=== PATIENT | female | born 1980 | race Caucasian/White ===

== ENCOUNTER 2018-11-22 22:18 | Emergency (ER) | payer OTHER ==
--- NOTE | 2018-11-22 23:04 | EDM.PDOC ---
ED HPI GENERAL MEDICAL PROBLEM - General Chief Complaint: Lower Extremity Injury/Pain Stated Complaint: KNEE PAIN Time Seen by Provider: 11/22/18 22:32 Source of Information: Reports: Patient History Limitations: Reports: No Limitations - History of Present Illness INITIAL COMMENTS - FREE TEXT/NARRATIVE: This is a 38-year-old female. Back in 2005 she injured her right knee and she tells me it was her ACL that she injured. Apparently over the last week or so she has been having pain in her right knee and it feels like is going to give away in fact it's given away twice in the last time she was coming down some steps and he gave away and she fell down the steps. She has good insurance now and she wants to be evaluated. I explained to her that the soft tissues of the knee are seen by MRI and not by x-ray and since she is able to walk and has no obvious knee swelling I do not believe any bone problems are going on and it's all soft tissue. I would refer her to the orthopedist in the meantime put her in a knee immobilizer to help with her stability. Right Knee Pain Score (Numeric/FACES): 8 - Related Data Allergies Allergy/AdvReac Type Severity Reaction Status Date / Time Penicillins Allergy Vomiting Verified 11/22/18 22:28 Home Meds: Home Meds Lee Ann. 11/22/18 [History] Naproxen Sodium 550 mg PO BID #20 tablet 11/22/18 [Rx] Past Medical History HEENT History: Reports: Other (See Below) Other HEENT History: allergies Social & Family History - Tobacco Use Smoking Status *Q: Current Every Day Smoker Years of Tobacco use: 26 Packs/Tins Daily: 0.5 - Recreational Drug Use Recreational Drug Use: Yes Drug Use in Last 12 Months: No Review of Systems - Review of Systems Review Of Systems: See Below Constitutional: Denies: Chills, Fever Eyes: Reports: No Symptoms Ears: Reports: No Symptoms Nose: Reports: No Symptoms Mouth/Throat: Reports: No Symptoms Respiratory: Reports: No Symptoms Cardiovascular: Reports: No Symptoms GI/Abdominal: Reports: No Symptoms Genitourinary: Reports: No Symptoms Musculoskeletal: Reports: Other (Right knee pain) Skin: Reports: No Symptoms Neurological: Reports: No Symptoms Psychiatric: Reports: No Symptoms ED EXAM, GENERAL - Physical Exam Exam: See Below Exam Limited By: No Limitations General Appearance: Alert, WD/WN, No Apparent Distress Eye Exam: Bilateral Eye: Normal Inspection Ears: Normal External Exam Nose: Normal Inspection Throat/Mouth: Normal Inspection, Normal Lips, Normal Voice, No Airway Compromise Head: Normocephalic Neck: Supple Respiratory/Chest: No Respiratory Distress Back Exam: Full Range of Motion Extremities: Normal Inspection, Other (Right knee is mildly tender globally but there is no significant effusion noted. Anterior and posterior drawer sign are negative though she is tender with anterior drawer sign, the medial joint line is tender on palpation but not the lateral joint line, the collateral ligaments both medial and lateral appear to be intact and non-tender with stressing) Neurological: Alert, Oriented Psychiatric: Normal Affect, Normal Mood Skin Exam: Warm, Dry Course - Vital Signs Last Recorded V/S: Last Vital Signs Temp 98.4 F 11/22/18 22:28 Pulse 110 H 11/22/18 22:28 Resp 18 11/22/18 22:28 BP 125/88 11/22/18 22:28 Pulse Ox 100 11/22/18 22:28 Departure - Departure Time of Disposition: 23:01 Disposition: Home, Self-Care 01 Condition: Good Clinical Impression: Sprain of right knee Qualifiers: Encounter type: initial encounter Involved ligament of knee: other ligament Qualified Code(s): S83.8X1A - Sprain of other specified parts of right knee, initial encounter Meniscus, medial, derangement Qualifiers: Laterality: right Qualified Code(s): M23.303 - Other meniscus derangements, unspecified medial meniscus, right knee Sprain, ACL Qualifiers: Encounter type: initial encounter Laterality: right Qualified Code(s): S83.511A - Sprain of anterior cruciate ligament of right knee, initial encounter - Discharge Information *PRESCRIPTION DRUG MONITORING PROGRAM REVIEWED*: Not Applicable *COPY OF PRESCRIPTION DRUG MONITORING REPORT IN PATIENT AUDELIA: Not Applicable Prescriptions: Naproxen Sodium 550 mg PO BID #20 tablet Instructions: Knee Sprain, Adult, [id number] Referrals: Yovana Licona NP [Primary Care Provider] - Keshawn Cardona MD [Physician] - Forms: ED Department Discharge, ED Return to Work/School Form Additional Instructions: Wear the knee immobilizer when you're up and when you're at work, take the naproxen as needed for the soreness and pain in the knee, follow-up with the network management specialist Dr. Cardona" for evaluation of the right knee, return to the ER if needed
== END 2018-11-22 23:30 | disposition home or self-care (01) ==
LOC: JD.ED 22:18
DX: S83.511A Sprain of anterior cruciate ligament of right knee, initial encounter (principal); F17.210 Nicotine dependence, cigarettes, uncomplicated; Z88.1 Allergy status to other antibiotic agents; X58.XXXA Exposure to other specified factors, initial encounter; Z98.890 Other specified postprocedural states
CPT/HCPCS: 99283-25; 99284

== ENCOUNTER 2019-07-03 06:51 | Day surgery (SDC) | payer OTHER ==
[2019-07-03] MEDS ORDERED: Sodium Chloride 0.9% 10 ML Syringe FLUSH PRN (07:27)
[2019-07-03] MEDS ORDERED: Sodium Chloride 0.9% 1,000 ML IV SCH (07:30)
[2019-07-03] MEDS ORDERED: HYDROmorphone 0.5 MG/0.5 ML Syringe IVPUSH ONE ×2 (07:35→08:23)
[2019-07-03] MEDS ORDERED: Ondansetron 4 MG/2 ML SDV IVPUSH ONE (07:35)
--- NOTE | 2019-07-03 07:50 | EDM.PDOC ---
ED HPI GENERAL MEDICAL PROBLEM - General Chief Complaint: Abdominal Pain Stated Complaint: LOW ABD PAIN Time Seen by Provider: 07/03/19 07:22 Source of Information: Reports: Patient, RN Notes Reviewed - History of Present Illness INITIAL COMMENTS - FREE TEXT/NARRATIVE: 38 year old female had onset of severe pelvic pain about 3 hrs ago. She has hx of recent ectopic diagnosed about 3 wks ago, HCG pos but no intrauterine per hx from patient. She was treated with 2 doses of methotrexate. She did have vaginal bleeding and spotting but that stopped a day or 2 ago. Now severe lower mid pelvic pain with cramping and radiation to back. She has had some nausea. No chest or shoulder pain. No difficulty breathing. No vaginal bleeding or spotting at this time. Lower Abdominal Pain Score (Numeric/FACES): 10 - Related Data Allergies Allergy/AdvReac Type Severity Reaction Status Date / Time Penicillins Allergy Vomiting Verified 07/03/19 07:25 Home Meds: Home Meds . 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 Denies: Diarrhea, Vomiting Musculoskeletal: Reports: Back Pain Skin: Reports: No Symptoms Neurological: Reports: No Symptoms ED EXAM, RENAL/ - Physical Exam Exam: See Below General Appearance: Alert, Moderate Distress Eye Exam: Bilateral Eye: PERRL Throat/Mouth: Normal Inspection, Normal Oropharynx Head: Atraumatic Neck: Supple Respiratory/Chest: No Respiratory Distress, Lungs Clear, Normal Breath Sounds Cardiovascular: Regular Rate, Rhythm GI/Abdominal: Soft, Tender (moderate tenderness lower mid pelvis) Course - Vital Signs Last Recorded V/S: Last Vital Signs Temp 97.8 F 07/03/19 07:20 Pulse 76 07/03/19 11:28 Resp 18 07/03/19 07:20 BP 130/86 07/03/19 11:28 Pulse Ox 100 07/03/19 11:28 - Orders/Labs/Meds Orders: Active Orders 24 hr Category Date Time Status Patient Status [ADT] Routine ADT 07/03/19 10:58 Active Antiembolic Devices [RC] PER UNIT ROUTINE Care 07/03/19 11:00 Active Peripheral IV Care [RC] . DIRECTED Care 07/03/19 07:28 Active Procedure Site Prep Instruct [RC] PER UNIT ROUTINE Care 07/03/19 10:58 Active Verify Patient Consent Obtain [RC] PER UNIT ROUTINE Care 07/03/19 11:00 Active Nothing Per Oral Diet [DIET] Diet 07/03/19 Breakfast Active Sodium Chloride 0.9% [Normal Saline] 1,000 ml Med 07/03/19 07:30 Active IV ONETIME Sodium Chloride 0.9% [Saline Flush] Med 07/03/19 07:27 Active 10 ml FLUSH ASDIRECTED PRN Peripheral IV Insertion Adult [OM.PC] Stat Oth 07/03/19 07:27 Ordered Schedule Procedure [COMM] Stat Oth 07/03/19 11:09 Ordered Sequential Compression Device [OM.PC] Per Unit Routine Oth 07/03/19 11:00 Ordered Medication Orders Sodium Chloride (Normal Saline) 1,000 mls @ 999 mls/hr IV ONETIME TWILA Last Admin: 07/03/19 07:44 Dose: 999 mls/hr Sodium Chloride (Saline Flush) 10 ml FLUSH ASDIRECTED PRN PRN Reason: Keep Vein Open Last Admin: 07/03/19 07:47 Dose: 10 ml Labs: Laboratory Tests 07/03/19 07/03/19 Range/Units 07:25 07:25 WBC 14.59 H (3.98-10.04) K/mm3 RBC 4.92 (3.98-5.22) M/mm3 Hgb 14.6 (11.2-15.7) gm/dl Hct 43.4 (34.1-44.9) % MCV 88.2 (79.4-94.8) fl MCH 29.7 (25.6-32.2) pg MCHC 33.6 (32.2-35.5) g/dl RDW Std Deviation 44.8 (36.4-46.3) fL Plt Count 514 H (182-369) K/mm3 MPV 9.6 (9.4-12.3) fl Neut % (Auto) 84.8 H (34.0-71.1) % Lymph % (Auto) 8.6 L (19.3-51.7) % Lucas % (Auto) 5.5 (4.7-12.5) % Eos % (Auto) 0.5 L (0.7-5.8) Baso % (Auto) 0.3 (0.1-1.2) % Neut # (Auto) 12.36 H (1.56-6.13) K/mm3 Lymph # (Auto) 1.26 (1.18-3.74) K/mm3 Lucas # (Auto) 0.80 H (0.24-0.36) K/mm3 Eos # (Auto) 0.08 (0.04-0.36) K/mm3 Baso # (Auto) 0.04 (0.01-0.08) K/mm3 Manual Slide Review Normal smear Sodium 134 L (136-145) mEq/L Potassium 3.3 L (3.5-5.1) mEq/L Chloride 102 (98-107) mEq/L Carbon Dioxide 19 L (21-32) mEq/L Anion Gap 16.3 H (5-15) BUN 13 (7-18) mg/dL Creatinine 0.8 (0.55-1.02) mg/dL Est Cr Clr Drug Dosing 92.72 mL/min Estimated GFR (MDRD) > 60 (>60) mL/min BUN/Creatinine Ratio 16.3 (14-18) Glucose 130 H (74-106) mg/dL Calcium 9.5 (8.5-10.1) mg/dL Total Bilirubin 0.6 (0.2-1.0) mg/dL AST 18 (15-37) U/L ALT 45 (14-59) U/L Alkaline Phosphatase 105 (46-116) U/L Total Protein 8.3 H (6.4-8.2) g/dl Albumin 4.2 (3.4-5.0) g/dl Globulin 4.1 gm/dL Albumin/Globulin Ratio 1.0 (1-2) HCG, Quant 1560.0 mIU/mL Meds: Medications Generic Name Dose Route Start Last Admin Trade Name Frealexa PRN Reason Stop Dose Admin Sodium Chloride 1,000 mls @ 999 mls/hr 07/03/19 07:30 07/03/19 07:44 Normal Saline IV 999 mls/hr ONETIME TWILA Administration Sodium Chloride 10 ml 07/03/19 07:27 07/03/19 07:47 Saline Flush FLUSH 10 ml ASDIRECTED PRN Administration Keep Vein Open Discontinued Medications Generic Name Dose Route Start Last Admin Trade Name Frealexa PRN Reason Stop Dose Admin Bupivacaine HCl Confirm 07/03/19 10:46 Marcaine 0.5% Administered 07/03/19 10:47 Dose 30 ml .ROUTE .STK-MED ONE Dexamethasone Confirm 07/03/19 11:06 Dexamethasone Administered 07/03/19 11:07 Dose 20 mg .ROUTE .STK-MED ONE Fentanyl Confirm 07/03/19 11:06 Sublimaze Administered 07/03/19 11:07 Dose 250 mcg .ROUTE .STK-MED ONE Hydromorphone HCl 0.5 mg 07/03/19 07:35 07/03/19 07:45 Dilaudid IVPUSH 07/03/19 07:36 0.5 mg ONETIME ONE Administration Hydromorphone HCl 0.5 mg 07/03/19 08:23 07/03/19 09:11 Dilaudid IVPUSH 07/03/19 08:24 0.5 mg ONETIME ONE Administration Hydromorphone HCl Confirm 07/03/19 11:56 Dilaudid Administered 07/03/19 11:57 Dose 0.5 mg .ROUTE .STK-MED ONE Hydromorphone HCl Confirm 07/03/19 12:02 Dilaudid Administered 07/03/19 12:03 Dose 0.5 mg .ROUTE .STK-MED ONE Lidocaine HCl Confirm 07/03/19 11:05 Xylocaine-Mpf 1% Administered 07/03/19 11:06 Dose 4 mls @ as directed .ROUTE .STK-MED ONE Lactated Ringer's Confirm 07/03/19 11:05 Ringers, Lactated Administered 07/03/19 11:06 Dose 1,000 mls @ as directed .ROUTE .STK-MED ONE Lactated Ringer's Confirm 07/03/19 11:24 Ringers, Lactated Administered 07/03/19 11:25 Dose 1,000 mls @ as directed .ROUTE .STK-MED ONE Ketamine HCl Confirm 07/03/19 11:37 Ketalar Administered 07/03/19 11:38 Dose 500 mg .ROUTE .STK-MED ONE Ketorolac Tromethamine Confirm 07/03/19 11:06 Toradol Administered 07/03/19 11:07 Dose 30 mg .ROUTE .STK-MED ONE Midazolam HCl Confirm 07/03/19 11:06 Versed 1 Mg/Ml Administered 07/03/19 11:07 Dose 2 mg .ROUTE .STK-MED ONE Ondansetron HCl 4 mg 07/03/19 07:35 07/03/19 07:45 Zofran IVPUSH 07/03/19 07:36 4 mg ONETIME ONE Administration Ondansetron HCl Confirm 07/03/19 11:05 Zofran Administered 07/03/19 11:06 Dose 4 mg .ROUTE .STK-MED ONE Propofol Confirm 07/03/19 11:06 Diprivan 20 Ml Administered 07/03/19 11:07 Dose 400 mg .ROUTE .STK-MED ONE Rocuronium [place] Confirm 07/03/19 11:06 Zemuron Administered 07/03/19 11:07 Dose 100 mg .ROUTE .STK-MED ONE Succinylcholine Chloride Confirm 07/03/19 11:05 Succinylcholine In Ns Pf Administered 07/03/19 11:06 Dose 100 mg .ROUTE .STK-MED ONE Succinylcholine Chloride Confirm 07/03/19 11:10 Succinylcholine In Ns Pf Administered 07/03/19 11:11 Dose 200 mg .ROUTE .STK-MED ONE Departure - Departure Time of Disposition: 22:30 Disposition: DC/Tfer to Critical Access 66 Condition: Serious Clinical Impression: Ectopic Qualifiers: Location of ectopic : unspecified location Intrauterine status: without intrauterine Qualified Code(s): O00.90 - Unspecified ectopic without intrauterine - Discharge Information Sepsis Event Note - Evaluation Sepsis Screening Result: No Definite Risk - Focused Exam Vital Signs: Vital Signs Temp Pulse Resp BP Pulse Ox 07/03/19 11:28 76 130/86 100 07/03/19 07:20 97.8 F 70 18 147/92 H 100 Date Exam was Performed: 07/03/19 Time Exam was Performed: 12:09 ED Communication - Discussed Case With (1) Discussed Case With (1): Admitting Provider (Dr Brian, decision to go over to surgery for expl. lap at about 22:30.) - My Orders Last 24 Hours: My Active Orders 07/03/19 07:27 Sodium Chloride 0.9% [Saline Flush] 10 ml FLUSH ASDIRECTED PRN Peripheral IV Insertion Adult [OM.PC] Stat 07/03/19 07:28 Peripheral IV Care [RC] . DIRECTED 07/03/19 07:30 Sodium Chloride 0.9% [Normal Saline] 1,000 ml IV ONETIME - Assessment/Plan Last 24 Hours: My Active Orders 07/03/19 07:27 Sodium Chloride 0.9% [Saline Flush] 10 ml FLUSH ASDIRECTED PRN Peripheral IV Insertion Adult [OM.PC] Stat 07/03/19 07:28 Peripheral IV Care [RC] . DIRECTED 07/03/19 07:30 Sodium Chloride 0.9% [Normal Saline] 1,000 ml IV ONETIME
--- NOTE | 2019-07-03 10:16 | US ---
First trimester obstetrical ultrasound: Multiple real-time images were obtained transvaginally. Comparison: No previous pelvic imaging. Findings: Uterus is retroverted. No intrauterine gestational sac is seen. Solid abnormality is seen next to the left ovary measuring 3.5 cm. This presumably represents patient's previous ectopic . Small amount of free fluid is seen within the pelvis. Echogenic fluid is noted within the pelvis which is suspicious for small amount of blood. Impression: 1. Small amount of simple fluid with slightly more prominent complicated fluid presumably representing blood. 2. 3.5 cm abnormality next to the left ovary presumably due to patient's previous ectopic . Please correlate if side of previous ectopic is known. 3. No additional abnormality is appreciated. Diagnostic code #3 This report was dictated in [place] Standard Time
--- NOTE | 2019-07-03 10:43 | PCM.PREANE ---
Preanesthetic Assessment - Anesthesia/Transfusion/Family Hx Anesthesia History: Prior Anesthesia Reaction Type of Anesthesia Reaction: Other (see below) (History of difficult intubation) Family History of Anesthesia Reaction: No Transfusion History: No Prior Transfusion(s) Intubation History: Unknown - Review of Systems General: No Symptoms (sore throat, runny nose), Fatigue, Malaise Pulmonary: No Symptoms (Smoker: 1 PPD times 27 yrs.), Cough (smoker's cough: yellowish/green color) Cardiovascular: Dyspnea on Exertion Gastrointestinal: No Symptoms (GERD- takes tums every day.), Abdominal Pain ( Pain 6/10), Decreased Appetite, Nausea, Vomiting Neurological: No Symptoms (History of motion sickness), Headache (History of migraine LIGHT's.) Other: Reports: None, Sinus Problem - Physical Assessment NPO Status Date: 07/02/19 NPO Status Time: 19:00 Vital Signs: Last Vital Signs Temp 36.6 C 07/03/19 07:20 Pulse 70 07/03/19 07:20 Resp 18 07/03/19 07:20 BP 147/92 H 07/03/19 07:20 Pulse Ox 100 07/03/19 07:20 Height: 1.7 m Weight: 90.265 kg ASA Class: 2E Mental Status: Alert & Oriented x3 Airway Class: Mallampati = 3 Dentition: Reports: Normal Dentition, Broken Tooth/Teeth (broken teeth noted in the back), Caries Thyro-Mental Finger Breadths: 3 Mouth Opening Finger Breadths: 3 ROM/Head Extension: Full Lungs: Clear to Auscultation, Normal Respiratory Effort Cardiovascular: Regular Rate, Regular Rhythm, No Murmurs - Lab Values: Laboratory Last Values WBC 14.59 K/mm3 (3.98-10.04) H 07/03/19 07:25 RBC 4.92 M/mm3 (3.98-5.22) 07/03/19 07:25 Hgb 14.6 gm/dl (11.2-15.7) 07/03/19 07:25 Hct 43.4 % (34.1-44.9) 07/03/19 07:25 MCV 88.2 fl (79.4-94.8) 07/03/19 07:25 MCH 29.7 pg (25.6-32.2) 07/03/19 07:25 MCHC 33.6 g/dl (32.2-35.5) 07/03/19 07:25 RDW Std Deviation 44.8 fL (36.4-46.3) 07/03/19 07:25 Plt Count 514 K/mm3 (182-369) H 07/03/19 07:25 MPV 9.6 fl (9.4-12.3) 07/03/19 07:25 Neut % (Auto) 84.8 % (34.0-71.1) H 07/03/19 07:25 Lymph % (Auto) 8.6 % (19.3-51.7) L 07/03/19 07:25 Harrison % (Auto) 5.5 % (4.7-12.5) 07/03/19 07:25 Eos % (Auto) 0.5 (0.7-5.8) L 07/03/19 07:25 Baso % (Auto) 0.3 % (0.1-1.2) 07/03/19 07:25 Neut # (Auto) 12.36 K/mm3 (1.56-6.13) H 07/03/19 07:25 Lymph # (Auto) 1.26 K/mm3 (1.18-3.74) 07/03/19 07:25 Harrison # (Auto) 0.80 K/mm3 (0.24-0.36) H 07/03/19 07:25 Eos # (Auto) 0.08 K/mm3 (0.04-0.36) 07/03/19 07:25 Baso # (Auto) 0.04 K/mm3 (0.01-0.08) 07/03/19 07:25 Manual Slide Review Normal smear 07/03/19 07:25 Sodium 134 mEq/L (136-145) L 07/03/19 07:25 Potassium 3.3 mEq/L (3.5-5.1) L 07/03/19 07:25 Chloride 102 mEq/L (98-107) 07/03/19 07:25 Carbon Dioxide 19 mEq/L (21-32) L 07/03/19 07:25 Anion Gap 16.3 (5-15) H 07/03/19 07:25 BUN 13 mg/dL (7-18) 07/03/19 07:25 Creatinine 0.8 mg/dL (0.55-1.02) 07/03/19 07:25 Est Cr Clr Drug Dosing 92.72 mL/min 07/03/19 07:25 Estimated GFR (MDRD) > 60 mL/min (>60) 07/03/19 07:25 BUN/Creatinine Ratio 16.3 (14-18) 07/03/19 07:25 Glucose 130 mg/dL (74-106) H 07/03/19 07:25 Calcium 9.5 mg/dL (8.5-10.1) 07/03/19 07:25 Total Bilirubin 0.6 mg/dL (0.2-1.0) 07/03/19 07:25 AST 18 U/L (15-37) 07/03/19 07:25 ALT 45 U/L (14-59) 07/03/19 07:25 Alkaline Phosphatase 105 U/L (46-116) 07/03/19 07:25 Total Protein 8.3 g/dl (6.4-8.2) H 07/03/19 07:25 Albumin 4.2 g/dl (3.4-5.0) 07/03/19 07:25 Globulin 4.1 gm/dL 07/03/19 07:25 Albumin/Globulin Ratio 1.0 (1-2) 07/03/19 07:25 HCG, Quant 1560.0 mIU/mL 07/03/19 07:25 Above labs reviewed and noted and within acceptable ranges to proceed with procedure. 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 [No Known Home Meds] 07/03/19 [History] - CURRENT (IN HOUSE) MEDS Current Meds: Current Medications Sodium Chloride (Normal Saline) 1,000 mls @ 999 mls/hr IV ONETIME TWILA Last Admin: 07/03/19 07:44 Dose: 999 mls/hr Sodium Chloride (Saline Flush) 10 ml FLUSH ASDIRECTED PRN PRN Reason: Keep Vein Open Last Admin: 07/03/19 07:47 Dose: 10 ml Discontinued Medications Hydromorphone HCl (Dilaudid) 0.5 mg IVPUSH ONETIME ONE Stop: 07/03/19 07:36 Last Admin: 07/03/19 07:45 Dose: 0.5 mg Hydromorphone HCl (Dilaudid) 0.5 mg IVPUSH ONETIME ONE Stop: 07/03/19 08:24 Last Admin: 07/03/19 09:11 Dose: 0.5 mg Ondansetron HCl (Zofran) 4 mg IVPUSH ONETIME ONE Stop: 07/03/19 07:36 Last Admin: 07/03/19 07:45 Dose: 4 mg
[2019-07-03] MEDS ORDERED: Bupivacaine 0.5% 30 ML SDV ONE (10:46)
[2019-07-03] MEDS ORDERED: Lidocaine 1% 4 ML ONE (11:05)
[2019-07-03] MEDS ORDERED: Ondansetron 4 MG/2 ML SDV ONE (11:05)
[2019-07-03] MEDS ORDERED: Lactated Ringers 1,000 ML ONE ×2 (11:05→11:24)
[2019-07-03] MEDS ORDERED: Succinylcholine/Normal Saline 100 MG/5 ML Syringe ONE ×2 (11:05→11:10)
[2019-07-03] MEDS ORDERED: fentaNYL 250 MCG/5 ML SDV ONE (11:06)
[2019-07-03] MEDS ORDERED: Propofol 200 MG/20 ML SDV ONE (11:06)
[2019-07-03] MEDS ORDERED: Rocuronium 100 MG/10 ML MDV ONE (11:06)
[2019-07-03] MEDS ORDERED: Dexamethasone 4 MG/ML 5 ML MDV ONE (11:06)
[2019-07-03] MEDS ORDERED: Ketorolac 30 MG/ML SDV ONE (11:06)
[2019-07-03] MEDS ORDERED: Midazolam 1 MG/ML 2 ML SDV ONE (11:06)
--- NOTE | 2019-07-03 11:06 | PCM.HP.2 ---
H&P History of Present Illness - General Date of Service: 07/03/19 Admit Problem/Dx: Admission Diagnosis/Problem Admission Diagnosis/Problem Ectopic Source of Information: Patient History Limitations: Reports: No Limitations - History of Present Illness Initial Comments - Free Text/Narative: Patient is a 38 y/o woman who is currently being managed for an ectopic . Has received 2 doses of MTX with adequate dropping of hCG values, but today noted acute onset of abdominal pain. This was around 0400 this AM. Pain has gotten better, but still rates a 5/10. No other issues. Lower Abdominal Pain Score (Numeric/FACES): 10 - Related Data Allergies/Adverse Reactions: Allergies Allergy/AdvReac Type Severity Reaction Status Date / Time Penicillins Allergy Vomiting Verified 07/03/19 07:25 Home Medications: Home Meds . 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 , , Spontaneous : 6 Para: 3 LMP (Approximate): - Past Surgical History GI Surgical History: Reports: Cholecystectomy Female Surgical History: Reports: Tubal Ligation Musculoskeletal Surgical History: Reports: Other (See Below) (foot surgery) Social & Family History - Tobacco Use Smoking Status *Q: Current Every Day Smoker Years of Tobacco use: 27 Packs/Tins Daily: 0.5 - Caffeine Use Caffeine Use: Reports: Coffee - Recreational Drug Use Recreational Drug Use: Yes Drug Use in Last 12 Months: No Recreational Drug Type: Reports: Methamphetamine H&P Review of Systems - Review of Systems: Review Of Systems: See Below General: Reports: No Symptoms Pulmonary: Reports: No Symptoms Cardiovascular: Reports: No Symptoms Gastrointestinal: Reports: Abdominal Pain Genitourinary: Reports: No Symptoms Musculoskeletal: Reports: No Symptoms Psychiatric: Reports: No Symptoms Neurological: Reports: No Symptoms Exam - Exam Exam: See Below - Vital Signs Vital Signs: Last Vital Signs Temp 36.6 C 07/03/19 07:20 Pulse 70 07/03/19 07:20 Resp 18 07/03/19 07:20 BP 147/92 H 07/03/19 07:20 Pulse Ox 100 07/03/19 07:20 Weight: 90.265 kg - Exam General: Alert, Oriented, Cooperative, Mild Distress Lungs: Clear to Auscultation, Normal Respiratory Effort Cardiovascular: Regular Rate, Regular Rhythm GI/Abdominal Exam: Soft, Tender. No: Guarding, Rebound Back Exam: Normal Inspection Extremities: Normal Inspection Skin: Warm, Dry, Intact - Patient Data Lab Results Last 24 hrs: Laboratory Results - last 24 hr 07/03/19 07/03/19 Range/Units 07:25 07:25 WBC 14.59 H (3.98-10.04) K/mm3 RBC 4.92 (3.98-5.22) M/mm3 Hgb 14.6 (11.2-15.7) gm/dl Hct 43.4 (34.1-44.9) % MCV 88.2 (79.4-94.8) fl MCH 29.7 (25.6-32.2) pg MCHC 33.6 (32.2-35.5) g/dl RDW Std Deviation 44.8 (36.4-46.3) fL Plt Count 514 H (182-369) K/mm3 MPV 9.6 (9.4-12.3) fl Neut % (Auto) 84.8 H (34.0-71.1) % Lymph % (Auto) 8.6 L (19.3-51.7) % [place] % (Auto) 5.5 (4.7-12.5) % Eos % (Auto) 0.5 L (0.7-5.8) Baso % (Auto) 0.3 (0.1-1.2) % Neut # (Auto) 12.36 H (1.56-6.13) K/mm3 Lymph # (Auto) 1.26 (1.18-3.74) K/mm3 [place] # (Auto) 0.80 H (0.24-0.36) K/mm3 Eos # (Auto) 0.08 (0.04-0.36) K/mm3 Baso # (Auto) 0.04 (0.01-0.08) K/mm3 Manual Slide Review Normal smear Sodium 134 L (136-145) mEq/L Potassium 3.3 L (3.5-5.1) mEq/L Chloride 102 (98-107) mEq/L Carbon Dioxide 19 L (21-32) mEq/L Anion Gap 16.3 H (5-15) BUN 13 (7-18) mg/dL Creatinine 0.8 (0.55-1.02) mg/dL Est Cr Clr Drug Dosing 92.72 mL/min Estimated GFR (MDRD) > 60 (>60) mL/min BUN/Creatinine Ratio 16.3 (14-18) Glucose 130 H (74-106) mg/dL Calcium 9.5 (8.5-10.1) mg/dL Total Bilirubin 0.6 (0.2-1.0) mg/dL AST 18 (15-37) U/L ALT 45 (14-59) U/L Alkaline Phosphatase 105 (46-116) U/L Total Protein 8.3 H (6.4-8.2) g/dl Albumin 4.2 (3.4-5.0) g/dl Globulin 4.1 gm/dL Albumin/Globulin Ratio 1.0 (1-2) HCG, Quant 1560.0 mIU/mL Result Diagrams: 07/03/19 07:25 07/03/19 07:25 Sepsis Event Note - Evaluation Sepsis Screening Result: No Definite Risk - Focused Exam Vital Signs: Vital Signs Temp Pulse Resp BP Pulse Ox 07/03/19 07:20 36.6 C 70 18 147/92 H 100 Date Exam was Performed: 07/03/19 Time Exam was Performed: 11:01 - Problem List (1) Ectopic SNOMED Code(s): 62138001 ICD Code: O00.90 - UNSPECIFIED ECTOPIC WITHOUT INTRAUTERINE Status: Acute Current Visit: Yes Qualifiers: Location of ectopic : unspecified location Intrauterine status: without intrauterine Qualified Code(s): O00.90 - Unspecified ectopic without intrauterine Problem List Initiated/Reviewed/Updated: Yes Orders Last 24hrs: Active Orders 24 hr Category Date Time Status Patient Status [ADT] Routine ADT 07/03/19 10:58 Ordered Antiembolic Devices [RC] PER UNIT ROUTINE Care 07/03/19 11:00 Ordered Peripheral IV Care [RC] . DIRECTED Care 07/03/19 07:28 Active Procedure Site Prep Instruct [RC] PER UNIT ROUTINE Care 07/03/19 10:58 Ordered Verify Patient Consent Obtain [RC] PER UNIT ROUTINE Care 07/03/19 11:00 Ordered Nothing Per Oral Diet [DIET] Diet 07/03/19 Breakfast Ordered Sodium Chloride 0.9% [Normal Saline] 1,000 ml Med 07/03/19 07:30 Active IV ONETIME Sodium Chloride 0.9% [Saline Flush] Med 07/03/19 07:27 Active 10 ml FLUSH ASDIRECTED PRN Peripheral IV Insertion Adult [OM.PC] Stat Oth 07/03/19 07:27 Ordered Sequential Compression Device [OM.PC] Per Unit Routine Ot 07/03/19 11:00 Ordered Medication Orders Sodium Chloride (Normal Saline) 1,000 mls @ 999 mls/hr IV ONETIME [facility] Last Admin: 07/03/19 07:44 Dose: 999 mls/hr Sodium Chloride (Saline Flush) 10 ml FLUSH ASDIRECTED PRN PRN Reason: Keep Vein Open Last Admin: 07/03/19 07:47 Dose: 10 ml Assessment/Plan Comment:: Patient had successfully dropping hCG's with MTX administration. Now with increasing abdominal pain. Will take for laparoscopic removal of ectopic and removal of residual fallopian tubes. She agrees. Consent reviewed and signed. Anesthesia aware.
--- NOTE | 2019-07-03 11:08 | PCM.OPNOTE ---
- General Post-Op/Procedure Note Date of Surgery/Procedure: 07/03/19 Operative Procedure(s): Evacuation of hemoperitoneum. Removal of ectopic - left salpingectomy. Removal of right fimbriae Findings: About 250 cc of old clot and blood noted in the pelvis. Swollen/edematous residual left fallopian tube adherent to uterus and surrounding bowel. Normal appearance of residual right fimbriae. Normal appearance of bilateral ovaries. Pre Op Diagnosis: Ectopic - failed MTX Post-Op Diagnosis: Same Anesthesia Technique: General ET Tube Primary Surgeon: Taina Holt Secondary Surgeon: Luna Tuttle Anesthesia Provider: Rosario Nguyen Reason Senior Advisory Was Necessary: BMI of patient. Speed/safety of procedure. Management of adhesive disease Pathology: Fallopian tubes and presumed ectopic removed and sent to pathology Fluid Replacement, Intraop: 1,500 Output, Urine Amount: 150 EBL in mLs: 250 Complications: None Condition: Good Free Text/Narrative:: The risks, benefits, indications, potential complications, and alternatives were explained to the patient and informed consent obtained. The patient was taken to the Operating Room where general anesthesia was induced without complication. The patient was placed in dorsal lithotomy with Osmar Stirrups. The patient was then prepped and draped in the usual sterile fashion. A sterile bivalve speculum was placed into the vagina and the anterior lip of the cervix was grasped with a single tooth tenaculum. An attempt was made to place a Hulka uterine manipulator, but was unsuccessful. The single tooth tenaculum was removed. The speculum was removed from the vagina. Sponge stick placed in the vagina. A Chicas catheter was placed in the bladder. Attention was then turned to the patients abdomen where a Veress needle was inserted into the abdomen while tenting the abdominal wall. Intraabdominal placement was confirmed with a drop test using a saline filled syringe and low intraabdominal pressure on low flow. A vertical infraumbilical incision was made in the umbilical fold and the 5 mm blunt trocar was inserted with the 5 mm laparoscope inserted through the trocar for direct visualization of abdominal entry through the clear view lens. Once intraabdominal placement was confirmed, the blunt obturator was removed and the laparoscope was inserted and exam of the patient's abdomen revealed the findings detailed above. Attention was turned to placement of the accessory ports. Both ports were placed approximately 10 cm lateral and 2-3 cm below the level of the first incision. A 10 mm skin incision was made in the right lower quadrant and a 10 mm trocar was inserted into the abdomen under direct visualization with care to avoid the abdominal wall vasculature. A second port was placed through a 5 mm skin incision in the left lower quadrant. A 5 mm trocar was inserted into the abdomen under direct visualization with care to avoid the abdominal wall vasculature. About 250 cc of blood and clot noted in the pelvis. Suction performed. With this dark clot and slightly swollen residual left fallopian tube on patient's left. Adhesions noted to the bowel and uterus. Fallopian tube essentially tethered to the uterus. Adhesions taken down with blunt dissection, hydrodissection, and also sharply. Once fallopian tube free the LigaSure was used to cauterize and transect the mesosalpinx starting at the fimbriae towards the cornua. Once at cornua LigaSure used to cauterize and transect the fallopian tube/ectopic thus freeing it. Specimen placed in anterior cul de sac. Residual right fimbriae and fallopian tube also removed in the fashion with the LigaSure and placed in the anterior cul de sac. Copious irrigation then performed to break up adherent clot in the left ovarian fossa and posterior cul de sac. All sites of dissection felt to be hemostatic. An Endocatch bag was placed through the RLQ port and specimen placed into bag. The bag was then elevated to the anterior abdominal wall and closed. Bag and port removed from the abdomen. The Shalom Keyes inlet closure device was placed into the abdomen and used to re-approximate the fascia of the 10 mm port with 0-Vicryl. Patient taken out of Trendelenburg and suction performed of residual fluid/blood. The left lower quadrant trocar was then removed under direct visualization. The pneumoperitoneum was allowed to escape. The umbilical trocar was removed and lastly the camera was removed from the abdomen under direct visualization to confirm no herniation into the port site. 0.25% Marcaine was injected into the subcutaneous tissue of all skin incisions for local anesthesia. The skin incisions were re-approximated with 4-0 Monocryl in a running subcuticular fashion. Dermabond was also used to seal the incisions. The vaginal instruments and Chicas catheter were all removed and hemostasis was adequate. All sponge, lap, needle, and instrument counts were correct x 2.The patient tolerated the procedure well and there were no complications.
[2019-07-03] MEDS ORDERED: Ketamine 500 mg/10 ML MDV ONE (11:37)
[2019-07-03] MEDS ORDERED: HYDROmorphone 0.5 MG/0.5 ML Syringe ONE ×2 (11:56→12:02)
[2019-07-03] MEDS ORDERED: Neostigmine Methylsulfate 1 MG/ML 5 ML Syringe ONE (12:39)
[2019-07-03] MEDS ORDERED: HYDROmorphone 0.5 MG/0.5 ML Syringe IVPUSH PRN (12:41)
[2019-07-03] MEDS ORDERED: fentaNYL 100 MCG/2 ML SDV IVPUSH PRN (12:41)
[2019-07-03] MEDS ORDERED: Ondansetron 4 MG/2 ML SDV IVPUSH PRN (12:41)
--- NOTE | 2019-07-03 13:23 | PCM.POSTAN ---
POST ANESTHESIA ASSESSMENT - MENTAL STATUS Mental Status: Alert, Oriented - VITAL SIGNS Vital Signs: Last Vital Signs 1314 142/56 107 22 97.4 100% - RESPIRATORY Respiratory Status: Respiratory Rate WNL, Airway Patent, O2 Saturation Stable, Supplemental Oxygen - CARDIOVASCULAR CV Status: Pulse Rate WNL - GASTROINTESTINAL GI Status: No Symptoms - PAIN Pain Score: 0 - POST OP HYDRATION Hydration Status: Adequate & Stable
[2019-07-03] MEDS ORDERED: Acetaminophen/oxyCODONE 325-5 MG Tab PO PRN (13:51)
--- NOTE | 2019-07-03 14:18 | PCM48HPAN ---
Post Anesthesia Note - EVALUATION WITHIN 48HRS OF ANESTHETIC Vital Signs in Normal Range: Yes Patient Participated in Evaluation: Yes Respiratory Function Stable: Yes Airway Patent: Yes Cardiovascular Function Stable: Yes Hydration Status Stable: Yes Pain Control Satisfactory: Yes Nausea and Vomiting Control Satisfactory: Yes Mental Status Recovered: Yes Vital Signs: Last Vital Signs Temp 36.3 C 07/03/19 13:14 Pulse 76 07/03/19 11:28 Resp 14 07/03/19 14:15 BP 133/75 07/03/19 14:15 Pulse Ox 100 07/03/19 14:16
== END 2019-07-03 15:20 | disposition home or self-care (01) ==
LOC: JD.ED 06:51 → JD.SDS 10:33
PROVIDERS: ATTEND Obstetrics & Gynecology
DX: O00.102 Left tubal pregnancy without intrauterine pregnancy (principal); F17.210 Nicotine dependence, cigarettes, uncomplicated; Z88.0 Allergy status to penicillin
CPT/HCPCS: 36415; 51702; 58661; 59151; 76817; 80053; 84702; 85025; 96361; 96374; 96375; 96376; 99285; A9270; J0330; J1100; J1170; J1885; J2001; J2250; J2405; J2704; J2710; J3010; J3490; J7030; J7120; 00840; 99284

== ENCOUNTER 2019-12-11 19:02 | Emergency (ER) | payer OTHER ==
[2019-12-11] MEDS ORDERED: Ondansetron 4 MG/2 ML SDV IVPUSH ONE (19:35)
[2019-12-11] MEDS ORDERED: Ketorolac 30 MG/ML SDV IVPUSH ONE (19:35)
[2019-12-11] MEDS ORDERED: Sodium Chloride 0.9% 10 ML Syringe FLUSH PRN (19:36)
--- NOTE | 2019-12-11 19:41 | EDM.PDOC ---
ED HPI GENERAL MEDICAL PROBLEM - General Chief Complaint: Genitourinary Problem Stated Complaint: BLOOD IN URINE/LEFT SIDE PAIN Time Seen by Provider: 12/11/19 19:18 Source of Information: Reports: Patient, RN Notes Reviewed History Limitations: Reports: No Limitations - History of Present Illness INITIAL COMMENTS - FREE TEXT/NARRATIVE: Patient is a 39-year-old female who presents to the ED for the evaluation of her ongoing urinary symptoms. Patient notes that she was diagnosed with a UTI today, at a clinic. She was started on Macrobid, and did take 1 dose today. She noticed symptoms starting last night, with increased urinary frequency, and blood in the urine this morning. She states that throughout today however she is experiencing pain to her left flank area and has appreciated a temp at home, of 99 F. She states that she does feel nauseous, just does not feel generally well at this time. Patient notes that she does have a history of kidney stones in the past. She did not take any sort of medications for pain management at home. She has not really been able to eat or drink much this afternoon due to not feeling well. The patient denies any sort of , she states she has had both of her fallopian tubes removed. She does have a history of ectopic however. Left Back Pain Score (Numeric/FACES): 8 - Related Data Allergies Allergy/AdvReac Type Severity Reaction Status Date / Time Penicillins AdvReac Severe Vomiting Verified 12/11/19 19:20 Home Meds: Home Meds Acetaminophen/HYDROcodone [Buckhorn 325-5 MG] 1 tab PO Q6H PRN #15 tablet 12/11/19 [Rx] Fluticasone Propionate [Flonase] 2 spray INH DAILY 12/11/19 [History] Levocetirizine Dihydrochloride [Xyzal] 5 mg PO DAILY 12/11/19 [History] Nitrofurantoin Monohyd/M-Cryst [Macrobid 100 mg Capsule] 100 mg PO BID 12/11/19 [History] Ondansetron [Zofran ODT] 4 mg PO Q8H PRN #12 tab.dis 12/11/19 [Rx] Past Medical History HEENT History: Reports: Allergic Rhinitis Other HEENT History: allergies 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 - Past Surgical History GI Surgical History: Reports: Cholecystectomy Female Surgical History: Reports: Oophorectomy Social & Family History - Tobacco Use Smoking Status *Q: Current Every Day Smoker Years of Tobacco use: 27 Packs/Tins Daily: 0.5 - Caffeine Use Caffeine Use: Reports: Coffee - Recreational Drug Use Recreational Drug Use: No ED ROS GENERAL - Review of Systems Review Of Systems: See Below Constitutional: Reports: Fever, Chills, Decreased Appetite Respiratory: Denies: Shortness of Breath, Cough Cardiovascular: Denies: Chest Pain GI/Abdominal: Reports: Abdominal Pain (low abd cramping type pain), Decreased Appetite, Nausea. Denies: Constipation, Diarrhea, Vomiting : Reports: Flank Pain (left), Frequency, Hematuria. Denies: Discharge ED EXAM, RENAL/ - Physical Exam Exam: See Below Exam Limited By: No Limitations General Appearance: Alert, WD/WN, No Apparent Distress Ears: Normal External Exam Nose: Normal Inspection Throat/Mouth: Normal Inspection, Normal Lips, Normal Teeth, Normal Gums, Normal Oropharynx, Normal Voice, No Airway Compromise Head: Atraumatic, Normocephalic Neck: Normal Inspection Respiratory/Chest: No Respiratory Distress, Lungs Clear, Normal Breath Sounds, No Accessory Muscle Use, Chest Non-Tender Cardiovascular: Normal Peripheral Pulses, Regular Rate, Rhythm, No Murmur GI/Abdominal: Normal Bowel Sounds, Soft, Non-Tender, No Distention, No Mass Extremities: Normal Inspection, Normal Capillary Refill Neurological: Alert, Oriented, Normal Cognition, No Motor/Sensory Deficits Psychiatric: Normal Affect, Normal Mood Skin Exam: Warm, Dry, Intact, Normal Color, No Rash Course - Vital Signs Last Recorded V/S: Last Vital Signs Temp 98.0 F 12/11/19 19:17 Pulse 115 H 12/11/19 19:17 Resp 16 12/11/19 19:17 BP 156/94 H 12/11/19 19:17 Pulse Ox 96 12/11/19 19:17 - Orders/Labs/Meds Labs: Laboratory Tests 12/11/19 12/11/19 12/11/19 Range/Units 19:50 19:50 19:50 WBC 13.05 H (3.98-10.04) K/mm3 RBC 5.13 (3.98-5.22) M/mm3 Hgb 15.5 (11.2-15.7) gm/dl Hct 46.0 H (34.1-44.9) % MCV 89.7 (79.4-94.8) fl MCH 30.2 (25.6-32.2) pg MCHC 33.7 (32.2-35.5) g/dl RDW Std Deviation 45.2 (36.4-46.3) fL Plt Count 412 H D (182-369) K/mm3 MPV 9.5 (9.4-12.3) fl Neutrophils % (Manual) 71 H (40-60) % Band Neutrophils % 0 (0-10) % Lymphocytes % (Manual) 25 (20-40) % Atypical Lymphs % 0 % Monocytes % (Manual) 2 (2-10) % Eosinophils % (Manual) 2 (0.7-5.8) % Basophils % (Manual) 0 L (0.1-1.2) Platelet Estimate Adequate RBC Morph Comment Normal Sodium 138 (136-145) mEq/L Potassium 3.3 L (3.5-5.1) mEq/L Chloride 104 (98-107) mEq/L Carbon Dioxide 22 (21-32) mEq/L Anion Gap 15.3 H (5-15) BUN 13 (7-18) mg/dL Creatinine 0.9 (0.55-1.02) mg/dL Est Cr Clr Drug Dosing 81.61 mL/min Estimated GFR (MDRD) > 60 (>60) mL/min BUN/Creatinine Ratio 14.4 (14-18) Glucose 88 (74-106) mg/dL Calcium 9.4 (8.5-10.1) mg/dL Total Bilirubin 0.8 (0.2-1.0) mg/dL AST 17 (15-37) U/L ALT 38 (14-59) U/L Alkaline Phosphatase 106 (46-116) U/L Total Protein 7.9 (6.4-8.2) g/dl Albumin 4.1 (3.4-5.0) g/dl Globulin 3.8 gm/dL Albumin/Globulin Ratio 1.1 (1-2) Urine Color Dee H (Yellow) Urine Appearance Turbid H (Clear) Urine pH 5.5 (5.0-8.0) Ur Specific [place] > or = 1.030 (1.005-1.030) Urine Protein 2+ H (Negative) Urine Glucose (UA) Negative (Negative) Urine Ketones 2+ H (Negative) Urine Occult Blood 3+ H (Negative) Urine Nitrite Negative (Negative) Urine Bilirubin 1+ H (Negative) Urine Urobilinogen 0.2 (0.2-1.0) Ur Leukocyte Esterase Negative (Negative) Urine RBC >100 H (0-5) /hpf Urine WBC 0-5 (0-5) /hpf Ur Squamous Epith Cells 5-10 H (0-5) /hpf Urine Bacteria Few (FEW) /hpf Urine Mucus Moderate H (FEW) /hpf Meds: Medications Discontinued Medications Generic Name Dose Route Start Last Admin Trade Name Freq PRN Reason Stop Dose Admin Hydromorphone HCl 0.5 mg 12/11/19 20:48 12/11/19 20:52 Dilaudid IVPUSH 12/11/19 20:49 0.5 mg ONETIME ONE Administration Sodium Chloride 1,000 mls @ 150 mls/hr 12/11/19 19:45 12/11/19 20:49 Normal Saline IV 999 mls/hr ASDIRECTED TWILA Infusion Ketorolac Tromethamine 30 mg 12/11/19 19:35 12/11/19 19:52 Toradol IVPUSH 12/11/19 19:36 30 mg ONETIME ONE Administration Ondansetron HCl 4 mg 12/11/19 19:35 12/11/19 19:51 Zofran IVPUSH 12/11/19 19:36 4 mg ONETIME ONE Administration Potassium Chloride 40 meq 12/11/19 20:41 12/11/19 20:48 Klor-Con M20 PO 12/11/19 20:42 40 meq ONETIME ONE Administration Sodium Chloride 10 ml 12/11/19 19:36 12/11/19 19:53 Saline Flush FLUSH 10 ml ASDIRECTED PRN Administration Keep Vein Open Tamsulosin HCl 0.4 mg 12/11/19 20:42 12/11/19 20:48 Flomax PO 12/11/19 20:43 0.4 mg ONETIME ONE Administration - Re-Assessments/Exams Free Text/Narrative Re-Assessment/Exam: 12/11/19 19:40 Patient presents to the ED for the evaluation of her ongoing urinary tract infection/symptoms. Have ordered IV to be placed with some IV fluids, 30 mg IV Toradol, abdomen pelvis CT without contrast for evaluation regarding kidney stone versus pyelo, highly suspicious for pyelonephritis in nature, due to symptom course. Have ordered baseline labs and another urinalysis for evaluation. 12/11/19 20:37 Laboratory evaluation demonstrates a mildly elevated white blood cell count at 13.05, 71% neutrophils and 0 bands, this could be due to stress reaction due to the patient's pain. Potassium is mildly low at 3.3, she will get 40 mEq p.o. potassium for this. Other metabolic abnormalities are unremarkable at this time. The patient's urinalysis is highly suggestive of more of a kidney stone in nature, nitrites are negative leukocyte Estrace is negative, RBCs are 100+ per high-power field. The patient's abdomen pelvis CT also did not demonstrate any sort of a pyelonephritis in nature, there was a 2.5 mm calcification within the pelvis either within the distal right ureter or next to the right distal ureter. Please correlate if the patient has right-sided symptoms. Several small nonobstructing calculi within both kidneys were noted as well. No other acute abnormalities were appreciated. Patient's presentation, she was complaining of pain on her left side mainly, however she does have a history of kidney stones and I would be more apt to believe that she is probably has a kidney stone. I will suggest the patient may be stopped taking her nitrofurantoin, and treat herself as if she has a kidney stone otherwise. Departure - Departure Time of Disposition: 20:50 Disposition: Home, Self-Care 01 Condition: Good Clinical Impression: Kidney stone - Discharge Information *PRESCRIPTION DRUG MONITORING PROGRAM REVIEWED*: Yes *COPY OF PRESCRIPTION DRUG MONITORING REPORT IN PATIENT AUDELIA: No Prescriptions: Acetaminophen/HYDROcodone [Buckhorn 325-5 MG] 1 tab PO Q6H PRN #15 tablet PRN Reason: Pain Ondansetron [Zofran ODT] 4 mg PO Q8H PRN #12 tab.dis PRN Reason: Nausea Instructions: Kidney Stones, [id number], Dietary Guidelines to Help Prevent Kidney Stones Referrals: PCP,None [Primary Care Provider] - Forms: ED Department Discharge, ED Return to Work/School Form Additional Instructions: You were evaluated in the ER today for your left flank pain. Your urinalysis did demonstrate a lot of blood in your urine, which is suggestive of a kidney stone at this time. Your urinalysis done at today's ER visit, did not demonstrate any sign of a urinary tract infection like you were previously told, you were started on a course of nitrofurantoin as an antibiotic , you may discontinue this medication at this time. A CT was done at this ER visit, this demonstrated a 2.5mm kidney stone within the right ureter. You have been given a strainer, please use every time you use the bathroom to make sure that the kidney stone has passed. Recommend that you increase your oral fluid intake to try to help the stone pass. You have been given a few tablets of pain medication, please take as prescribed. These medications are highly addictive, please take as few as you need to. These medications also may cause constipation, please take a stool softener like MiraLAX while taking these medications. If your pain is not much better in a week's time, you may need to follow up with your primary care physician, for a possible urology referral. Please return to the ED if your symptoms change or worsen. Sepsis Event Note - Evaluation Sepsis Screening Result: No Definite Risk - Focused Exam Date Exam was Performed: 12/14/19 Time Exam was Performed: 11:06
[2019-12-11] MEDS ORDERED: Sodium Chloride 0.9% 1,000 ML IV SCH (19:45)
--- NOTE | 2019-12-11 20:24 | CT ---
CT abdomen and pelvis Technique: Multiple axial sections were obtained from above the dome of the diaphragm inferiorly through the pubic symphysis. Intravenous and oral contrast not utilized. Comparison: No prior abdominal imaging is available. Findings: 2 small nonobstructing calculi are seen within the left kidney. 1 small nonobstructing stone is noted within the right kidney. These calculi measure less than 5 mm in size. Ureters show no dilatation. Small calcification is seen which is either within or next to the distal right ureter. This finding measures about 2.5 mm in size. Other findings: Visualized lung bases show nothing acute. Liver contains no focal abnormality. Spleen appears normal. Surgical clips are seen from prior cholecystectomy. Adrenal glands show no nodule. Pancreas shows no abnormality. Aorta shows no aneurysm. No retroperitoneal adenopathy or mesenteric abnormalities are seen. Appendix is seen which is normal. No pelvic mass or adenopathy is seen. No free fluid or inflammatory change is seen. Impression: 1. 2.5 mm calcification within the pelvis either within the distal right ureter or next to the right distal ureter. Please correlate if patient has right-sided symptoms. 2. Small nonobstructing calculi within both kidneys. 3. No additional abnormality is appreciated. Diagnostic code #3 This report was dictated in MDT
[2019-12-11] MEDS ORDERED: Potassium Chloride 20 MEQ Tab.ER PO ONE (20:41)
[2019-12-11] MEDS ORDERED: Tamsulosin 0.4 MG Cap.ER PO ONE (20:42)
[2019-12-11] MEDS ORDERED: HYDROmorphone 0.5 MG/0.5 ML Syringe IVPUSH ONE (20:48)
== END 2019-12-11 21:32 | disposition home or self-care (01) ==
LOC: JD.ED 19:02
DX: N20.2 Calculus of kidney with calculus of ureter (principal); Z88.0 Allergy status to penicillin; F17.210 Nicotine dependence, cigarettes, uncomplicated
CPT/HCPCS: 36415; 74176; 80053; 81001; 85007; 85027; 96374; 96375; 99284; A9270; J1170; J1885; J2405; J7030; 99283

== ENCOUNTER 2019-12-22 18:41 | Emergency (ER) | payer OTHER ==
--- NOTE | 2019-12-22 19:06 | EDM.PDOC ---
ED HPI GENERAL MEDICAL PROBLEM - General Chief Complaint: Flank Pain Stated Complaint: FLANK PAIN Time Seen by Provider: 12/22/19 19:06 - History of Present Illness INITIAL COMMENTS - FREE TEXT/NARRATIVE: 39-year-old female presents the emergency room with kidney stone pain on the Left. Patient was diagnosed with a kidney stone about 12 days ago. Her symptoms of kind of waxed and waned she is not convinced she is passed the stone now the last couple of days she is had pretty significant symptoms. Has had some urinary spotting but she is having another cycle. She denies any fevers or chills she has some urinary discomfort with voiding at times. Vomiting. And at times she has some dysuria. Left Flank Pain Score (Numeric/FACES): 7 - Related Data Allergies Allergy/AdvReac Type Severity Reaction Status Date / Time Penicillins AdvReac Severe Vomiting Verified 12/22/19 18:47 Home Meds: Home Meds Acetaminophen/HYDROcodone [[place] 325-5 MG] 1 tab PO Q6H PRN #15 tablet 12/11/19 [Rx] Fluticasone Propionate [Flonase] 2 spray INH DAILY 12/11/19 [History] Ondansetron [Zofran ODT] 4 mg PO Q8H PRN #12 tab.dis 12/11/19 [Rx] Tamsulosin HCl [Flomax] 0.4 mg PO DAILY 12/22/19 [History] Past Medical History HEENT History: Reports: Allergic Rhinitis Other HEENT History: allergies Genitourinary History: Reports: Renal Calculus 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 Social & Family History - Tobacco Use Smoking Status *Q: Current Every Day Smoker Years of Tobacco use: 27 Packs/Tins Daily: 0.5 Second Hand Smoke Exposure: Yes - Caffeine Use Caffeine Use: Reports: Coffee, Soda - Recreational Drug Use Recreational Drug Use: No ED ROS GENERAL - Review of Systems Review Of Systems: See Below Constitutional: Denies: Fever, Chills HEENT: Reports: No Symptoms Respiratory: Reports: No Symptoms Cardiovascular: Reports: No Symptoms, Palpitations GI/Abdominal: Reports: Abdominal Pain, Nausea. Denies: Constipation, Diarrhea, Vomiting : Reports: Flank Pain, Frequency, Hematuria, Irregular Menses, Urgency. Denies: Dysuria Musculoskeletal: Reports: No Symptoms Skin: Reports: No Symptoms Neurological: Reports: No Symptoms Psychiatric: Reports: No Symptoms ED EXAM, RENAL/ - Physical Exam Exam: See Below Exam Limited By: No Limitations General Appearance: Alert, No Apparent Distress Head: Atraumatic, Normocephalic Neck: Normal Inspection, Supple, Non-Tender, Full Range of Motion Respiratory/Chest: No Respiratory Distress, Lungs Clear, Normal Breath Sounds, No Accessory Muscle Use, Chest Non-Tender Cardiovascular: Normal Peripheral Pulses, Regular Rate, Rhythm, No Edema, No Gallop, No JVD, No Murmur, No Rub GI/Abdominal: Normal Bowel Sounds, Soft, Other (Left-sided discomfort no rigidity rebound or guarding noted) Back Exam: Normal Inspection. No: CVA Tenderness (R) Extremities: Normal Inspection Course - Vital Signs Last Recorded V/S: Last Vital Signs Temp 37.2 C 12/22/19 18:45 Pulse 82 12/22/19 18:45 Resp 16 12/22/19 18:45 BP 143/92 H 12/22/19 18:45 Pulse Ox 99 12/22/19 18:45 - Orders/Labs/Meds Orders: Active Orders 24 hr Category Date Time Status Abdomen Pelvis wo Cont [CT] Stat Exams 12/22/19 19:19 Taken Labs: Laboratory Tests 12/22/19 12/22/19 12/22/19 Range/Units 19:40 19:40 19:40 WBC 8.89 (3.98-10.04) K/mm3 RBC 5.10 (3.98-5.22) M/mm3 Hgb 15.4 (11.2-15.7) gm/dl Hct 46.4 H (34.1-44.9) % MCV 91.0 (79.4-94.8) fl MCH 30.2 (25.6-32.2) pg MCHC 33.2 (32.2-35.5) g/dl RDW Std Deviation 44.0 (36.4-46.3) fL Plt Count 380 H (182-369) K/mm3 MPV 9.6 (9.4-12.3) fl Neut % (Auto) 52.8 (34.0-71.1) % Lymph % (Auto) 37.9 (19.3-51.7) % [place] % (Auto) 5.5 (4.7-12.5) % Eos % (Auto) 3.0 (0.7-5.8) Baso % (Auto) 0.6 (0.1-1.2) % Neut # (Auto) 4.69 (1.56-6.13) K/mm3 Lymph # (Auto) 3.37 (1.18-3.74) K/mm3 [place] # (Auto) 0.49 H (0.24-0.36) K/mm3 Eos # (Auto) 0.27 (0.04-0.36) K/mm3 Baso # (Auto) 0.05 (0.01-0.08) K/mm3 Sodium 141 (136-145) mEq/L Potassium 3.5 (3.5-5.1) mEq/L Chloride 104 (98-107) mEq/L Carbon Dioxide 28 (21-32) mEq/L Anion Gap 12.5 (5-15) BUN 10 (7-18) mg/dL Creatinine 1.0 (0.55-1.02) mg/dL Est Cr Clr Drug Dosing 73.45 mL/min Estimated GFR (MDRD) > 60 (>60) mL/min BUN/Creatinine Ratio 10.0 L (14-18) Glucose 90 (74-106) mg/dL Calcium 10.6 H (8.5-10.1) mg/dL Total Bilirubin 0.2 (0.2-1.0) mg/dL AST 18 (15-37) U/L ALT 42 (14-59) U/L Alkaline Phosphatase 96 (46-116) U/L Total Protein 7.0 (6.4-8.2) g/dl Albumin 3.4 (3.4-5.0) g/dl Globulin 3.6 gm/dL Albumin/Globulin Ratio 0.9 L (1-2) HCG, Qual Negative (NEGATIVE) Urine Color (Yellow) Urine Appearance (Clear) Urine pH (5.0-8.0) Ur Specific [place] (1.005-1.030) Urine Protein (Negative) Urine Glucose (UA) (Negative) Urine Ketones (Negative) Urine Occult Blood (Negative) Urine Nitrite (Negative) Urine Bilirubin (Negative) Urine Urobilinogen (0.2-1.0) Ur Leukocyte Esterase (Negative) Urine RBC (0-5) /hpf Urine WBC (0-5) /hpf Ur Squamous Epith Cells (0-5) /hpf Urine Bacteria (FEW) /hpf Urine Mucus (FEW) /hpf 12/22/19 Range/Units 20:09 WBC (3.98-10.04) K/mm3 RBC (3.98-5.22) M/mm3 Hgb (11.2-15.7) gm/dl Hct (34.1-44.9) % MCV (79.4-94.8) fl MCH (25.6-32.2) pg MCHC (32.2-35.5) g/dl RDW Std Deviation (36.4-46.3) fL Plt Count (182-369) K/mm3 MPV (9.4-12.3) fl Neut % (Auto) (34.0-71.1) % Lymph % (Auto) (19.3-51.7) % [place] % (Auto) (4.7-12.5) % Eos % (Auto) (0.7-5.8) Baso % (Auto) (0.1-1.2) % Neut # (Auto) (1.56-6.13) K/mm3 Lymph # (Auto) (1.18-3.74) K/mm3 [place] # (Auto) (0.24-0.36) K/mm3 Eos # (Auto) (0.04-0.36) K/mm3 Baso # (Auto) (0.01-0.08) K/mm3 Sodium (136-145) mEq/L Potassium (3.5-5.1) mEq/L Chloride (98-107) mEq/L Carbon Dioxide (21-32) mEq/L Anion Gap (5-15) BUN (7-18) mg/dL Creatinine (0.55-1.02) mg/dL Est Cr Clr Drug Dosing mL/min Estimated GFR (MDRD) (>60) mL/min BUN/Creatinine Ratio (14-18) Glucose (74-106) mg/dL Calcium (8.5-10.1) mg/dL Total Bilirubin (0.2-1.0) mg/dL AST (15-37) U/L ALT (14-59) U/L Alkaline Phosphatase (46-116) U/L Total Protein (6.4-8.2) g/dl Albumin (3.4-5.0) g/dl Globulin gm/dL Albumin/Globulin Ratio (1-2) HCG, Qual (NEGATIVE) Urine Color Yellow (Yellow) Urine Appearance Slt cloudy H (Clear) Urine pH 6.5 (5.0-8.0) Ur Specific [place] > or = 1.030 (1.005-1.030) Urine Protein Negative (Negative) Urine Glucose (UA) Negative (Negative) Urine Ketones Negative (Negative) Urine Occult Blood 3+ H (Negative) Urine Nitrite Negative (Negative) Urine Bilirubin Negative (Negative) Urine Urobilinogen 0.2 (0.2-1.0) Ur Leukocyte Esterase Negative (Negative) Urine RBC 75-100 H (0-5) /hpf Urine WBC 0-5 (0-5) /hpf Ur Squamous Epith Cells 5-10 H (0-5) /hpf Urine Bacteria Few (FEW) /hpf Urine Mucus Few (FEW) /hpf - Re-Assessments/Exams Free Text/Narrative Re-Assessment/Exam: 12/22/19 21:56 Urinalysis is not suggestive of an infectious process. Serum chemistries are non-concerning. CT was done that shows nonobstructing stones at both UVJ's both stones are roughly 3 mm. My big concern is she still is having some bleeding. And I do not want to miss a bladder process assuming this is coming from kidney stones. I discussed this with the patient she needs to follow-up with her regular provider and follow up with urology to make sure the stones are completely cleared and will not impose a risk to her long-term renal function. I did discuss this with the patient and she understands this. Departure - Departure Time of Disposition: 21:58 Disposition: Home, Self-Care 01 Clinical Impression: Kidney stone, Hematuria - Discharge Information Instructions: Kidney Stones, [id number] Referrals: PCP,None [Primary Care Provider] - Forms: ED Department Discharge, ED Return to Work/School Form Additional Instructions: Return to the emergency room with any questions problems or worsening symptoms. Follow-up in the clinic at the end of this week or first part of next week for recheck. Continue to push lots of fluids and strain your urine looking for those stones. Sepsis Event Note - Evaluation Sepsis Screening Result: No Definite Risk - Focused Exam Vital Signs: Vital Signs Temp Pulse Resp BP Pulse Ox 12/22/19 18:45 37.2 C 82 16 143/92 H 99 Date Exam was Performed: 12/22/19 Time Exam was Performed: 22:53 - My Orders Last 24 Hours: My Active Orders 12/22/19 19:19 Abdomen Pelvis wo Cont [CT] Stat - Assessment/Plan Last 24 Hours: My Active Orders 12/22/19 19:19 Abdomen Pelvis wo Cont [CT] Stat
--- NOTE | 2019-12-23 06:51 | CT ---
CT abdomen and pelvis Technique: Multiple axial sections were obtained from above the dome of the diaphragm inferiorly through the pubic symphysis. Intravenous and oral contrast not utilized. Study has been performed as a ureteral stone protocol. Comparison: Prior CT abdomen and pelvis exam of 12/11/19. Findings: Several nonobstructing calculi are noted within both kidneys. Small calcification is seen which is most likely within the distal left UVJ representing a ureteral stone. This finding measures approximately 3.5 mm. Calcification is seen within the right pelvis which is similar to previous exam and uncertain if this is within the ureter or directly next to the ureter. Other findings: Visualized lung bases show nothing acute. Noncontrast appearance of the liver shows no discrete abnormality. Spleen appears within normal limits. Adrenal glands show no nodule. Pancreas is within normal limits. Surgical clips are seen from prior cholecystectomy. Aorta shows no aneurysm. No retroperitoneal adenopathy or mesenteric abnormalities are seen. No pelvic mass or adenopathy is seen. Appendix is seen which is normal. No pelvic mass or adenopathy is seen. No free fluid or inflammatory change is seen. Calcified injection granuloma are seen within the subcutaneous tissues of both buttocks. Bone window settings were reviewed. No acute osseous finding is appreciated. Impression: 1. Small obstructing stone within the distal left ureter at the UVJ. This measures about 3.5 mm. This is an interval change from previous study. 2. Small calcification within the right pelvis. This is similar to prior CT exam and uncertain if this represents a distal right ureteral stone or represents a small phlebolith directly next to the ureter. Delayed contrast CT study would be needed to differentiate if clinically needed. 3. Nonobstructing calculi seen within both kidneys. Other findings as noted above believed to be nonacute and incidental. Diagnostic code #3 This report was dictated in MDT I agree with preliminary report from [facility], finalized on 12/22/19, 10:19 PM Central Daylight Time
== END 2019-12-22 22:05 | disposition home or self-care (01) ==
LOC: JD.ED 18:41
DX: N20.2 Calculus of kidney with calculus of ureter (principal); F17.210 Nicotine dependence, cigarettes, uncomplicated; Z79.899 Other long term (current) drug therapy; Z88.0 Allergy status to penicillin
CPT/HCPCS: 36415; 74176; 74176-26; 80053; 81001; 84703; 85025; 99282; 99284-25

== ENCOUNTER 2020-01-14 18:49 | Emergency (ER) | payer OTHER ==
[2020-01-14] MEDS ORDERED: Acetaminophen/HYDROcodone 325-5 MG Tab PO ONE (20:08)
[2020-01-14] MEDS ORDERED: Ondansetron 4 MG Tab.DIS PO ONE (20:08)
--- NOTE | 2020-01-14 20:16 | EDM.PDOC ---
ED HPI GENERAL MEDICAL PROBLEM - General Chief Complaint: Flank Pain Stated Complaint: FEVER COMPLICATIONS POST OP FROM KIDNEY STONE Time Seen by Provider: 01/14/20 19:53 Source of Information: Reports: Patient, RN Notes Reviewed History Limitations: Reports: No Limitations - History of Present Illness INITIAL COMMENTS - FREE TEXT/NARRATIVE: Patient is a 39-year-old female who presents to the ED for the evaluation of her left-sided flank pain. Patient was diagnosed with a kidney stone on the left side last week in this ER, and was scheduled to have a lithotripsy done with Dr. Rowe at [facility] in [place] yesterday, she was put under for the lithotripsy, but states they could not find the stone, but she was scoped nonetheless but had no stent placed. Patient notes that she felt fine this morning, but as the day progressed, she is complaining of increasing left flank pain that radiates to her lower back, and also to her upper abdomen. Patient states she has had a mild temperature at home of 99.0 F, and she does have this temperature at time of triage. She has been taking Tylenol and ibuprofen for the pain but nothing seems to really be helping much. She denies any nausea/vomiting/diarrhea, but does state that she has a slight loss of appetite, she states she does not normally eat much anyways, but she is eating even less than she normally does. Patient states that she did have a small amount of dysuria after the procedure, but this was to be expected, and it does seem to be getting less as the day progresses. She denies any other sick-like symptoms cough/shortness of breath or chest pain. Left Flank Pain Score (Numeric/FACES): 8 - Related Data Allergies Allergy/AdvReac Type Severity Reaction Status Date / Time Penicillins AdvReac Severe Vomiting Verified 01/14/20 19:06 Home Meds: Home Meds Fluticasone Propionate [Flonase] 2 spray INH DAILY 12/11/19 [History] Acetaminophen [Tylenol Extra Strength] 1,000 mg PO ONCALL PRN 01/14/20 [History] Hydrocodone/Acetaminophen [[place] 5-325 Tablet] 1 each PO Q6H #15 tablet 01/14/20 [Rx] Ibuprofen 600 mg PO ONCALL PRN 01/14/20 [History] Levocetirizine Dihydrochloride [Xyzal] 5 mg PO DAILY 01/14/20 [History] Tamsulosin [Tamsulosin 24 Hr] 0.4 mg PO DAILY #4 cap.er 01/14/20 [Rx] Past Medical History HEENT History: Reports: Allergic Rhinitis Other HEENT History: allergies Genitourinary History: Reports: Renal Calculus 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 Social & Family History - Tobacco Use Smoking Status *Q: Current Every Day Smoker Years of Tobacco use: 26 Packs/Tins Daily: 0.5 - Caffeine Use Caffeine Use: Reports: Coffee, Soda - Recreational Drug Use Recreational Drug Use: Yes Drug Use in Last 12 Months: No Recreational Drug Type: Reports: Methamphetamine Recreational Drug Use Frequency: Not Used In Over 6 Months ED ROS GENERAL - Review of Systems Review Of Systems: See Below Constitutional: Reports: Fever (mild, readings have been 99 F at home), Chills, Decreased Appetite Respiratory: Denies: Shortness of Breath, Cough Cardiovascular: Denies: Chest Pain GI/Abdominal: Reports: Decreased Appetite. Denies: Abdominal Pain, Constipation, Diarrhea, Nausea, Vomiting : Reports: Dysuria (getting better), Flank Pain (left flank mostly). Denies: Frequency, Urgency ED EXAM, RENAL/ - Physical Exam Exam: See Below Exam Limited By: No Limitations General Appearance: Alert, WD/WN, No Apparent Distress Respiratory/Chest: No Respiratory Distress, Lungs Clear, Normal Breath Sounds, No Accessory Muscle Use, Chest Non-Tender Cardiovascular: Normal Peripheral Pulses, Regular Rate, Rhythm, No Murmur GI/Abdominal: Normal Bowel Sounds, Soft, Non-Tender, No Distention, No Mass Back Exam: Normal Inspection, Full Range of Motion Extremities: Normal Inspection, Normal Capillary Refill Neurological: Alert, Oriented, Normal Cognition, No Motor/Sensory Deficits Psychiatric: Normal Affect, Normal Mood Skin Exam: Warm, Dry, Intact, Normal Color, No Rash Course - Vital Signs Last Recorded V/S: Last Vital Signs Temp 99.0 F 01/14/20 19:08 Pulse 90 01/14/20 19:08 Resp 17 01/14/20 19:08 BP 138/96 H 01/14/20 19:08 Pulse Ox 99 01/14/20 19:08 - Orders/Labs/Meds Labs: Laboratory Tests 01/14/20 Range/Units 20:15 Urine Color Yellow (Yellow) Urine Appearance Slt cloudy H (Clear) Urine pH 6.0 (5.0-8.0) Ur Specific [place] 1.025 (1.005-1.030) Urine Protein Negative (Negative) Urine Glucose (UA) Negative (Negative) Urine Ketones Negative (Negative) Urine Occult Blood 3+ H (Negative) Urine Nitrite Negative (Negative) Urine Bilirubin Negative (Negative) Urine Urobilinogen 0.2 (0.2-1.0) Ur Leukocyte Esterase Trace H (Negative) Urine RBC >100 H (0-5) /hpf Urine WBC 0-5 (0-5) /hpf Ur Squamous Epith Cells 5-10 H (0-5) /hpf Urine Bacteria Rare (FEW) /hpf Urine Mucus Not seen (FEW) /hpf Meds: Medications Discontinued Medications Generic Name Dose Route Start Last Admin Trade Name Freq PRN Reason Stop Dose Admin Hydrocodone Bitart/Acetaminophen 2 tab 01/14/20 20:08 01/14/20 20:15 [place] 325-5 Mg PO 01/14/20 20:09 2 tab ONETIME ONE Administration Ondansetron HCl 4 mg 01/14/20 20:08 01/14/20 20:15 Zofran Odt PO 01/14/20 20:09 4 mg ONETIME ONE Administration Tamsulosin HCl 0.4 mg 01/14/20 20:38 Flomax PO 01/14/20 20:39 ONETIME ONE - Re-Assessments/Exams Free Text/Narrative Re-Assessment/Exam: 01/14/20 20:16 Patient presents to the ED for the evaluation of her left flank pain. Have ordered urinalysis to rule out infection, she will be given 4 mg ODT Zofran, and hydrocodone/acetaminophen 5/325 for her pain. 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 You did just have recent instrumentation to your bladder and or ureter, you are likely experiencing ureteral spasms. Urinalysis was taken today and demonstrates no acute infection of your urine or bladder. You have been given a few tablets of pain medication, please take as prescribed. These medications are highly addictive, please take as few as you need to. These medications also may cause constipation, please take a stool softener like MiraLAX while taking these medications. You were also given a few tablets of Flomax, please take 1 tab nightly for the next couple nights, to help with ureteral spasms. Highly and strongly recommend you follow-up with your urologist tomorrow, to see if there is any other causes for concern regarding your pain. Please return to the ED if your symptoms change or worsen. Sepsis Event Note (ED) - Evaluation Sepsis Screening Result: No Definite Risk - Focused Exam Vital Signs: Vital Signs Temp Pulse Resp BP Pulse Ox 01/14/20 19:08 99.0 F 90 17 138/96 H 99
[2020-01-14] MEDS ORDERED: Tamsulosin 0.4 MG Cap.ER PO ONE (20:38)
== END 2020-01-14 21:01 | disposition home or self-care (01) ==
LOC: JD.ED 18:49
DX: R10.9 Unspecified abdominal pain (principal); F17.210 Nicotine dependence, cigarettes, uncomplicated; Z90.49 Acquired absence of other specified parts of digestive tract; Z79.899 Other long term (current) drug therapy; Z88.0 Allergy status to penicillin
CPT/HCPCS: 81001; 99284; A9270

== ENCOUNTER 2022-06-20 09:23 | Emergency (ER) | payer OTHER ==
[2022-06-20] MEDS ORDERED: Sodium Chloride 0.9% 10 ML Syringe FLUSH PRN (11:02)
[2022-06-20] MEDS ORDERED: Ondansetron 4 MG/2 ML SDV IVPUSH ONE (11:02)
[2022-06-20] MEDS ORDERED: HYDROmorphone 1 MG/ML Syringe IVPUSH ONE (11:04)
[2022-06-20] MEDS ORDERED: Sodium Chloride 0.9% 1,000 ML IV SCH (11:15)
== END 2022-06-20 15:22 | disposition home or self-care (01) ==
LOC: JD.ED 09:23
DX: R10.10 Upper abdominal pain, unspecified (principal); Z72.0 Tobacco use; Z88.0 Allergy status to penicillin; Z90.49 Acquired absence of other specified parts of digestive tract
CPT/HCPCS: 36415; 76830; 80053; 81001; 83690; 84443; 84484; 84703; 85025; 93005; 96361; 96374; 96375; 99284; J1170; J2405; J3490; J7030

== ENCOUNTER 2023-06-22 09:14 | Emergency (ER) | payer MEDICAID ==
[2023-06-22] MEDS ORDERED: Sodium Chloride 0.9% 10 ML Syringe FLUSH PRN (09:34)
[2023-06-22] MEDS ORDERED: Ketorolac 30 MG/ML SDV IVPUSH ONE (09:34)
[2023-06-22 09:48] LABS: BASOPHILS ABSOLUTE AUTO 0.1 K/mm3 (0.0-0.2); BASOPHILS PERCENT AUTO 0.5 % (0.0-1.0); EOSINOPHILS ABSOLUTE AUTO 0.2 K/mm3 (0.0-0.4); EOSINOPHILS PERCENT AUTO 1.2 % (0.0-6.0); HEMATOCRIT 45.3 % (37.0-47.0); HEMOGLOBIN 15.4 gm/dl (12.0-16.0); IMMATURE GRAN ABSOLUTE AUTO 0.04 K/mm3 (0.00-0.05); IMMATURE GRAN PERCENT AUTO 0.3 % (0.0-0.4); LYMPHOCYTES ABSOLUTE AUTO 3.3 K/mm3 (1.0-4.8); LYMPHOCYTES PERCENT AUTO 25.6 % (24.0-44.0); MEAN CORPUSCULAR HEMOGLOBIN 30.7 pg (28.0-32.0); MEAN CORPUSCULAR VOLUME 90.4 fl (83.0-99.0); MEAN PLATELET VOLUME 9.7 fl (9.4-12.3); MONOCYTES ABSOLUTE AUTO 0.5 K/mm3 (0.0-0.8); MONOCYTES PERCENT AUTO 4.1 % (0.0-8.0); NEUTROPHILS ABSOLUTE AUTO 8.9 K/mm3 (1.8-7.7); NEUTROPHILS PERCENT AUTO 68.3 % (41.0-71.0); PLATELET COUNT,PLT 393 K/mm3 (150-400); RED BLOOD CELL COUNT 5.01 M/mm3 (4.10-5.30); WHITE BLOOD CELL COUNT,WBC 13.04 K/mm3 (3.9-11.3)
[2023-06-22 09:51] LABS: APPEARANCE,URINE CLEAR (Clear); BILIRUBIN,URINE NEGATIVE (Negative); COLOR,URINE YELLOW (Yellow); GLUCOSE,URINE NEGATIVE (Negative); KETONES,URINE NEGATIVE (Negative); LEUKOCYTE ESTERASE,URINE TRACE (Negative); NITRITE,URINE POSITIVE (Negative); OCCULT BLOOD,URINE TRACE-INTACT (Negative); PROTEIN,URINE NEGATIVE (Negative); UROBILINOGEN,URINE 0.2 (0.2-1.0)
[2023-06-22 10:04] LABS: BACTERIA,URINE MODERATE /hpf (FEW); MUCUS,URINE FEW /hpf (FEW); RBC,URINE 0-5 /hpf (0-5)
[2023-06-22 10:17] LABS: A/G RATIO 0.9 (1-2); ALBUMIN 3.7 g/dl (3.4-5.0); ANION GAP 17.7 (5-15); BILIRUBIN TOTAL 0.6 mg/dL (0.2-1.0); CALCIUM 9.1 mg/dL (8.5-10.1); EST CRCL DRUG DOSING (CG) 71.27 mL/min; MAGNESIUM 1.6 mg/dL (1.8-2.4); POTASSIUM,K 3.7 mEq/L (3.5-5.1); PROTEIN TOTAL,TP 7.7 g/dl (6.4-8.2)
[2023-06-22] MEDS ORDERED: Levofloxacin/Dextrose 5%-Water 500 MG in Premix Bag 1 BAG IV ONE (10:32)
== END 2023-06-22 11:45 | disposition home or self-care (01) ==
LOC: JD.ED 09:14
DX: N39.0 Urinary tract infection, site not specified (principal); N28.89 Other specified disorders of kidney and ureter; A49.9 Bacterial infection, unspecified; F17.210 Nicotine dependence, cigarettes, uncomplicated; Z88.0 Allergy status to penicillin; Z79.899 Other long term (current) drug therapy; Z90.49 Acquired absence of other specified parts of digestive tract
CPT/HCPCS: 36415; 74176; 80053; 81001; 83735; 85025; 96365; 96375; 99284; J1885; J1956; J3490

== ENCOUNTER → 2023-08-06 | Day surgery (SDC) | payer MEDICAID ==
[~2023-08-06] MED LIST: Bupivacaine 0.5% 30 ML SDV ONE; Dexamethasone 4 MG/ML 5 ML MDV ONE; HYDROmorphone 0.5 MG/0.5 ML Syringe IVPUSH PRN; Ketorolac 30 MG/ML SDV IVPUSH ONE; LORazepam 2 MG/ML SDV IVPUSH PRN; Lactated Ringers 1,000 ML IV SCH; Lidocaine 2% 11 ML Jelly Filled Syringe ONE; Lidocaine 2% 5 ML SDV ONE; Midazolam 1 MG/ML 2 ML SDV ONE; Ondansetron 4 MG/2 ML SDV IVPUSH PRN; Ondansetron 4 MG/2 ML SDV ONE; Propofol 200 MG/20 ML SDV ONE; Rocuronium 50 MG/5 ML Vial ONE; Sodium Chloride 0.9% 10 ML Syringe FLUSH PRN; Sodium Chloride 0.9% 10 ML Syringe FLUSH SCH; Succinylcholine 200 MG/10 ML MDV ONE; Sugammadex Sodium 200 MG/2 ML VIAL ONE; fentaNYL 100 MCG/2 ML SDV IVPUSH PRN; fentaNYL 100 MCG/2 ML SDV ONE; oxyCODONE 5 MG Tab PO PRN
[2023-08-06 07:56] LABS: HEMATOCRIT 40.8 % (37.0-47.0); MEAN CORPUSCULAR HEMOGLOBIN 30.6 pg (28.0-32.0); MEAN CORPUSCULAR HGB CONC 33.8 g/dl (32.0-36.0); MEAN CORPUSCULAR VOLUME 90.5 fl (83.0-99.0); MEAN PLATELET VOLUME 9.3 fl (9.4-12.3); PLATELET COUNT,PLT 327 K/mm3 (150-400); RED BLOOD CELL COUNT 4.51 M/mm3 (4.10-5.30); WHITE BLOOD CELL COUNT,WBC 10.64 K/mm3 (3.9-11.3)
[2023-08-06 08:03] LABS: HEMOGLOBIN 13.8 gm/dl (12.0-16.0)
[2023-08-06 09:05] LABS: BAND PERCENT MAN 0 % (0-10); BASOPHILS PERCENT MAN 1 (0.1-1.2); EOSINOPHILS PERCENT MAN 1 % (0.7-5.8); LYMPHOCYTES % ATYPICAL MANUAL 0 %; LYMPHOCYTES PERCENT MAN 27 % (20-40); MONOCYTES PERCENT MAN 5 % (2-10)
[2023-08-06 09:07] LABS: PLATELET COUNT ESTIMATE ADEQUATE
== END | disposition home or self-care (01) ==
LOC: JD.SDS 07:00
PROVIDERS: ATTEND Obstetrics & Gynecology
DX: N70.11 Chronic salpingitis (principal); N80.201 Endometriosis of right fallopian tube, unspecified depth; I10 Essential (primary) hypertension; F17.210 Nicotine dependence, cigarettes, uncomplicated; Z79.899 Other long term (current) drug therapy; Z88.0 Allergy status to penicillin; Z98.890 Other specified postprocedural states
CPT/HCPCS: 36415; 58661; 85007; 85027; A9270; J0330; J0665; J1100; J1885; J2250; J2405; J2704; J3010; J3490; J7120

== ENCOUNTER 2023-10-29 08:57 | Emergency (ER) | payer MEDICAID ==
[2023-10-29 09:39] LABS: BASOPHILS ABSOLUTE AUTO 0.1 K/mm3 (0.0-0.2); BASOPHILS PERCENT AUTO 0.6 % (0.0-1.0); EOSINOPHILS ABSOLUTE AUTO 0.2 K/mm3 (0.0-0.4); EOSINOPHILS PERCENT AUTO 2.1 % (0.0-6.0); HEMATOCRIT 43.3 % (37.0-47.0); HEMOGLOBIN 14.4 gm/dl (12.0-16.0); IMMATURE GRAN ABSOLUTE AUTO 0.04 K/mm3 (0.00-0.05); IMMATURE GRAN PERCENT AUTO 0.4 % (0.0-0.4); LYMPHOCYTES PERCENT AUTO 28.4 % (24.0-44.0); MEAN CORPUSCULAR HEMOGLOBIN 30.1 pg (28.0-32.0); MEAN CORPUSCULAR HGB CONC 33.3 g/dl (32.0-36.0); MEAN CORPUSCULAR VOLUME 90.4 fl (83.0-99.0); MEAN PLATELET VOLUME 9.6 fl (9.4-12.3); MONOCYTES ABSOLUTE AUTO 0.5 K/mm3 (0.0-0.8); MONOCYTES PERCENT AUTO 4.8 % (0.0-8.0); NEUTROPHILS ABSOLUTE AUTO 6.7 K/mm3 (1.8-7.7); NEUTROPHILS PERCENT AUTO 63.7 % (41.0-71.0); PLATELET COUNT,PLT 380 K/mm3 (150-400); RED BLOOD CELL COUNT 4.79 M/mm3 (4.10-5.30); WHITE BLOOD CELL COUNT,WBC 10.46 K/mm3 (3.9-11.3)
[2023-10-29 09:56] LABS: APPEARANCE,URINE CLEAR (Clear); BILIRUBIN,URINE 1+ (Negative); COLOR,URINE YELLOW (Yellow); GLUCOSE,URINE NEGATIVE (Negative); KETONES,URINE TRACE (Negative); LEUKOCYTE ESTERASE,URINE TRACE (Negative); NITRITE,URINE NEGATIVE (Negative); OCCULT BLOOD,URINE NEGATIVE (Negative); PROTEIN,URINE TRACE (Negative); UROBILINOGEN,URINE 0.2 (0.2-1.0)
[2023-10-29 10:01] LABS: BARBITURATE SCREEN,URINE NEGATIVE (CUTOFF=200); BENZODIAZEPINES SCREEN,URINE NEGATIVE (CUTOFF=150); BUPRENORPHINE SCREEN,URINE NEGATIVE (CUTOFF=10); METHADONE SCREEN, URINE NEGATIVE (CUTOFF=200); METHAMPHETAMINES SCREEN, URINE NEGATIVE (CUTOFF=500); OXYCODONE SCREEN,URINE NEGATIVE (CUT0FF=100); THC SCREEN,URINE 20 NG/ML PRESUMPTIVE POSITIVE (CUTOFF=50)
[2023-10-29 10:09] LABS: ALBUMIN 3.6 g/dl (3.4-5.0); ANION GAP 16.7 (5-15); BILIRUBIN TOTAL 0.5 mg/dL (0.2-1.0); CALCIUM 9.1 mg/dL (8.5-10.1); EST CRCL DRUG DOSING (CG) 70.54 mL/min; MAGNESIUM 1.7 mg/dL (1.8-2.4); POTASSIUM,K 3.7 mEq/L (3.5-5.1); PROTEIN TOTAL,TP 7.3 g/dl (6.4-8.2); TSH 0.592 uIU/mL (0.358-3.74)
[2023-10-29 10:11] LABS: AMPHETAMINES SCREEN, URINE NEGATIVE (CUTOFF=500)
[2023-10-29 10:23] LABS: BACTERIA,URINE FEW /hpf (FEW); MUCUS,URINE MODERATE /hpf (FEW); RBC,URINE 0-5 /hpf (0-5)
== END 2023-10-29 12:40 | disposition home or self-care (01) ==
LOC: JD.ED 08:57
DX: R55 Syncope and collapse (principal); E83.42 Hypomagnesemia; Z90.49 Acquired absence of other specified parts of digestive tract; Z79.899 Other long term (current) drug therapy; Z88.0 Allergy status to penicillin
CPT/HCPCS: 36415; 71045; 71045-26; 80053; 80306; 81001; 83735; 84443; 85025; 93005; 93010; 99282; 99284

== ENCOUNTER 2024-01-01 10:17 | Emergency (ER) | payer MEDICAID ==
[2024-01-01 10:48] LABS: APPEARANCE,URINE CLOUDY (Clear); BILIRUBIN,URINE 1+ (Negative); COLOR,URINE YELLOW (Yellow); GLUCOSE,URINE NEGATIVE (Negative); KETONES,URINE TRACE (Negative); LEUKOCYTE ESTERASE,URINE 1+ (Negative); NITRITE,URINE NEGATIVE (Negative); OCCULT BLOOD,URINE 2+ (Negative); PROTEIN,URINE 2+ (Negative); UROBILINOGEN,URINE 0.2 (0.2-1.0)
[2024-01-01 11:11] LABS: WBC,URINE 20-30 /hpf (0-5)
[2024-01-01 11:12] LABS: BACTERIA,URINE MODERATE /hpf (FEW); MUCUS,URINE FEW /hpf (FEW); SQUAMOUS EPITHELIAL CELLS,UR 20-30 /hpf (0-5)
[2024-01-01] MEDS: Cefdinir 300 MG Cap PO ONE (13:13)
== END 2024-01-01 14:10 | disposition home or self-care (01) ==
LOC: JD.ED 10:17
DX: B37.31 Acute candidiasis of vulva and vagina (principal); N39.0 Urinary tract infection, site not specified; E66.9 Obesity, unspecified; Z79.899 Other long term (current) drug therapy; Z88.0 Allergy status to penicillin
CPT/HCPCS: 0352U; 81001; 87086; 87088; 87186; 99284; A9270; 99283